=== PATIENT | female | born 1955 | race Caucasian/White ===

== ENCOUNTER → 2021-03-22 | Outpatient (CLI) | payer MEDICARE ==
[~2021-03-22] MED LIST: CELEBREX 200MG200 MG PO; EXCEDRIN1 TAB PO; FOLIC ACID 40400 MCG PO; IRON325 M1 PO; NORCO 325 MG-7.1 TAB PO; ROXICODONE 55 MG/TAB PO; TYLENOL ARTHRI650 M1 PO; VITAMIN C500 MG PO; XARELTO10 MG PO
== END ==
LOC: COL.RAD 13:42
DX: Z12.2 Encounter for screening for malignant neoplasm of respiratory organs (principal); F17.210 Nicotine dependence, cigarettes, uncomplicated

== ENCOUNTER → 2022-08-06 | Outpatient (CLI) | payer MEDICARE | LOC: COL.RAD 08-05 14:30 | DX: Z12.2 Encounter for screening for malignant neoplasm of respiratory organs (principal); F17.210 Nicotine dependence, cigarettes, uncomplicated ==